=== PATIENT | female | born 1965 | race Caucasian/White ===

== ENCOUNTER 2020-12-09 17:06 | Outpatient (CLI) | payer OTHER | END 2020-12-09 17:07 | disposition critical access hospital (66) | LOC: EMS 17:06 | DX: S99.912A Unspecified injury of left ankle, initial encounter (principal); W54.1XXA Struck by dog, initial encounter; Y93.89 Activity, other specified; Y92.009 Unspecified place in unspecified non-institutional (private) residence as the place of occurrence of the external cause | CPT/HCPCS: A0425; A0427 ==

== ENCOUNTER 2020-12-09 17:45 | Emergency (ER) | payer OTHER ==
--- NOTE | 2020-12-09 17:53 | ED Physician Documentation ---
PD HPI LOWER EXT INJURY - Stated complaint Stated Complaint: L ANKLE INJ - History obtained from History obtained from: Patient, EMS - History of Present Illness PD HPI LOW EXT INJURY LOCATION: Left (Her dog was running out the door and basically made her slide out and she injured her left ankle with severe pain, better after 10 mg of morphine on the way here. No other injuries. She is not able to walk or bear weight.) Review of Systems Ten Systems: 10 systems reviewed and negative Constitutional: reports: Reviewed and negative Eyes: reports: Reviewed and negative Ears: reports: Reviewed and negative Nose: reports: Reviewed and negative PD PAST MEDICAL HISTORY - Present Medications Home Medications: Ambulatory Orders Medication Instructions Recorded Confirmed HYDROcod/ACETAM 5/325 [[place] 5/325] 1 - 2 tab PO Q6H PRN #20 tablet 12/09/20 - Allergies Allergies/Adverse Reactions: Allergies Allergy/AdvReac Type Severity Reaction Status Date / Time fluconazole [From Diflucan] Allergy Rash Verified 12/09/20 18:00 PD ED PE NORMAL - Vitals Vital signs reviewed: Yes - General General: Alert and oriented X 3, No acute distress - Neck Neck: Supple, no meningeal sign, No bony TTP - Extremities Extremities: Other (Quite tender over the lateral malleolus of the left ankle without proximal fibular or foot tenderness. No obvious deformity.) - Neuro Neuro: Alert and oriented X 3, Normal speech Results - Vitals Vitals: Vital Signs - 24 hr 12/09/20 12/09/20 17:56 18:55 Temperature 36.6 C Heart Rate 74 Respiratory 18 Rate Blood Pressure 145/97 H 124/87 H O2 Saturation 97 Oxygen O2 Source Room air Procedures - Splint (location) LLE Splint applied by: Nurse Type of splint: Fiberglass, Short leg, Posterior Other: Patient tolerated well, No complications, Neurovascular intact, Crutches provided Departure - Departure Disposition: 01 Home, Self Care Clinical Impression: Fracture, talus closed Qualifiers: Encounter type: initial encounter Talus location: unspecified portion of talus Fracture alignment: displaced Laterality: left Qualified Code(s): S92.102A - Unspecified fracture of left talus, initial encounter for closed fracture Condition: Good Record reviewed to determine appropriate education?: Yes Instructions: ED Fx Foot Follow-Up: Sanju Lee MD [Provider Admit Priv/Credential] - Within 1 week Prescriptions: HYDROcod/ACETAM 5/325 [[place] 5/325] 1 - 2 tab PO Q6H PRN #20 tablet PRN Reason: Pain Comments: Prescription sent electronically to [facility] in [place]. Follow-up with orthopedics in about a week, keep the foot elevated and do not walk or bear weight on it until advised it is safe to do so by the orthopedic surgeon. I am prescribing a short course of narcotic pain medication for you. These are potentially dangerous and addictive medications that should be used carefully. These medications may constipate you. Take an mixc-thb-ekyvmgn stool softener (docusate) twice daily with plenty of water while taking these medications. If you go 24 hours without a bowel movement, take rlgo-ehg-ucybusv miralax, per cullen arnold instructions. Do not drink or drive while taking these medications. If you received narcotic or sedating medications while in the emergency department, do not drive for 24 hours. Store this medication in a safe, secure place and out of reach of children. It is a violation of federal law to give or sell this medication to another person or to use in a manner other than prescribed. The ED will not refill narcotic prescriptions, including prescriptions lost or stolen. To dispose of unwanted medications: 1. [facility] at [address] in [place] has a medication drop box. They accept prescription medications (in pill form) Wednesday through Wednesday 9:00 a.m. to 5:00 p.m. 2. The [facility] [employer] accepts prescription medications (in pill form only) for disposal year round. Call for more information. 3. Contact the [facility] for the next [facility] sponsored prescription drug collection event. , [phone], or [phone]; Note that many narcotic pain relievers also contain Tylenol/acetaminophen. Please ensure that your total dose of acetaminophen from all sources does not exceed 3 g (3000 mg) per day. Forms: Activity restrictions
--- NOTE | 2020-12-09 18:14 | XRAY Report ---
PROCEDURE: Ankle 3 View LT INDICATIONS: Ankle injury TECHNIQUE: 3 views of the ankle were acquired. COMPARISON: None FINDINGS: There is a mildly displaced small avulsion type fracture fragment of the lateral talar process with a djacent soft tissue swelling. No additional fracture. No tibiotalar effusion. IMPRESSION: Small avulsion type fracture of the lateral talar process, which is mildly displaced. Reviewed by: Jan Pendleton MD on 12/09/2020 6:12 PM PDT Approved by: Jan Pendleton MD on 12/09/2020 6:12 PM PDT Station ID: [id number]
[2020-12-09] MEDS ORDERED: HYDROmorphone 1 MG/ML CARPUJECT IVP STA (18:41)
--- NOTE | 2020-12-09 20:10 | XRAY Report ---
PROCEDURE: Foot 3 View LT INDICATIONS: Foot injury 4th MT TECHNIQUE: 3 views of the foot were acquired. COMPARISON: None FINDINGS: Bones: No fractures or dislocations. No suspicious bony lesions. Soft tissues: No tibiotalar joint effusion. Achilles tendon appears normal. IMPRESSION: No acute finding. Reviewed by: Jan Pendleton MD on 12/09/2020 8:09 PM PDT Approved by: Jan Pendleton MD on 12/09/2020 8:09 PM PDT Station ID: [id number]
[2020-12-09] MEDS ORDERED: HYDROcod/ACET 5/325 Prepack 4 PO STA (20:19)
[2020-12-09 20:31] VITALS: BP 125/79
== END 2020-12-09 21:12 | disposition home or self-care (01) ==
LOC: EDUNIT# → ED 17:45
DX: S92.152A Displaced avulsion fracture (chip fracture) of left talus, initial encounter for closed fracture (principal); X50.1XXA Overexertion from prolonged static or awkward postures, initial encounter
CPT/HCPCS: 29515; 73610; 73630; 96374; 99283; 99284; J1170

== ENCOUNTER 2020-12-18 13:16 | Outpatient (CLI) | payer OTHER ==
--- NOTE | 2020-12-18 16:16 | CT Report ---
PROCEDURE: LOWER EXTREMITY WO - LT INDICATIONS: Left foot injury and pain, fracture evaluation. TECHNIQUE: Noncontrast 3 mm axial sections acquired of the left ankle/foot, with coronal and sagittal reformats. COMPARISON: Reference is made to the left foot/ankle radiographs the December 09, 2020. FINDINGS: Image quality: Excellent. BONES: Mildly displaced fracture of the anterolateral calcaneus and posterior lateral cuboid. No ove rt callus formation is appreciated. The remaining visualized osseous structures appear maintained. No irregularity of the talar dome. No widening of the syndesmosis. The ankle mortise is symmetric. An accessory cuboid is noted. SOFT TISSUES: Edema about the fracture sites as detailed above. Small tibiotalar joint effusion. IMPRESSION: 1. Mildly displaced fractures of the anterior lateral calcaneus and posterior lateral cuboid. Reviewed by: Davide Billy MD on 12/18/2020 4:15 PM PDT Approved by: Davide Billy MD on 12/18/2020 4:15 PM PDT Station ID: [id number]
== END 2020-12-18 13:17 | disposition home or self-care (01) ==
LOC: DI 13:16
PROVIDERS: ATTEND Orthopaedic Surgery
DX: S92.022A Displaced fracture of anterior process of left calcaneus, initial encounter for closed fracture (principal); S92.212A Displaced fracture of cuboid bone of left foot, initial encounter for closed fracture